=== PATIENT | female | born 1935 | race Caucasian/White ===

== ENCOUNTER 2018-11-11 11:01 | Observation (INO) | payer OTHER, MEDICARE ==
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
[2018-11-11] MEDS ORDERED: morphine CARPU-JECT 4 MG/1 ML DISP.SYRIN IVPUSH ONE (11:37)
[2018-11-11] MEDS ORDERED: CYCLOBENZAPRINE HCL 5 MG TABLET PO ONE (11:37)
[2018-11-11] MEDS ORDERED: LIDOCAINE 5% TOPICAL PATCH TP ONE (11:37)
[2018-11-11] MEDS ORDERED: morphine SULFATE 4 MG/ML VIAL ONE ×2 (11:48→14:22)
[2018-11-11] MEDS ORDERED: LIDOCAINE 5% TOPICAL PATCH ONE (11:48)
[2018-11-11] MEDS ORDERED: CYCLOBENZAPRINE HCL 10 MG TABLET (FP) ONE (11:48)
[2018-11-11 12:24] LABS: BASO % 0.6 % (0-2.0); EOS % 0.6 % (0-4.5); HEMATOCRIT 40.2 % (32.4-45.2); HEMOGLOBIN 13.6 GM/dl (10.7-15.3); LYMPH % 17.8 % (8-40); MCH 31.2 pg (25.7-33.7); MCHC 33.9 g/dl (32.0-36.0); MEAN CELL VOLUME 91.9 fl (80-96); MEAN PLT VOLUME 9.3 fl (7.5-11.1); MONO % 4.2 % (3.8-10.2); NEUT % 76.8 % (42.8-82.8); PLATELET COUNT 255 K/MM3 (134-434); RBC 4.37 M/mm3 (3.60-5.2); RDW 12.6 % (11.6-15.6); WHITE BLOOD COUNT 12.7 K/mm3 (4.0-10.8)
[2018-11-11 12:32] LABS: ALK PHOS 83 U/L (45-117); ANION GAP 8 MMOL/L (8-16); BILIRUBIN,TOTAL 0.6 mg/dl (0.2-1); BLOOD UREA NITROGEN 22 mg/dl (7-18); CALCIUM 9.1 mg/dl (8.5-10); CHLORIDE 102 mmol/L (98-107); CO2 23 mmol/L (21-32); CREATININE 0.8 mg/dl (0.55-1.3); GLUCOSE,RANDOM 136 mg/dl (74-106); POTASSIUM 4.2 mmol/L (3.5-5.1); SGOT/AST 34 U/L (15-37); SGPT/ALT 26 U/L (13-61); SODIUM 133 mmol/L (136-145); TOT PROT 7.4 g/dl (6.4-8.2)
[2018-11-11 13:31] LABS: ERYTHROCYTE SEDIMENTATION RATE 31 mm/hr (0-30)
[2018-11-11 14:08] LABS: EPITHELIAL CELLS 1+ /hpf
[2018-11-11] MEDS ORDERED: CEFTRIAXONE 1,000 MG in DEXTROSE 5%-WATER - 50 ML IVPB ONE (14:09)
[2018-11-11] MEDS ORDERED: morphine CARPU-JECT 2 MG/1 ML DISP.SYRIN IVPUSH ONE (14:19)
[2018-11-11] MEDS ORDERED: cefTRIAXone SODIUM 1 GM VIAL ONE (14:22)
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
[2018-11-11 16:38] VITALS: BMI 31.6
[2018-11-11] MEDS ORDERED: DEXTROSE 5%-NORMAL SALINE 1,000 ML IV SCH (20:00)
[2018-11-11] MEDS: ATENOLOL 50 MG TABLET (FP) PO SCH (21:04)
[2018-11-11] MEDS: TRIAMTERENE AND HCTZ - 37.5 MG/25 MG CAPSULE PO SCH (21:04)
[2018-11-11] MEDS ORDERED: ATORVASTATIN CA 20 MG TABLET (FP) PO SCH (22:00)
[2018-11-12 08:15] LABS: ACTIVATED PTT 26.1 SECONDS (25.2-36.5)
[2018-11-12 08:17] LABS: ALBUMIN 3.3 g/dl (3.4-5.0); ALK PHOS 66 U/L (45-117); ANION GAP 7 MMOL/L (8-16); BILIRUBIN,TOTAL 0.8 mg/dl (0.2-1); BLOOD UREA NITROGEN 17 mg/dl (7-18); CALCIUM 8.4 mg/dl (8.5-10); CHLORIDE 101 mmol/L (98-107); CO2 27 mmol/L (21-32); CREATININE 0.6 mg/dl (0.55-1.3); GLUCOSE,RANDOM 125 mg/dl (74-106); MAGNESIUM 1.6 mg/dL (1.8-2.4); POTASSIUM 3.9 mmol/L (3.5-5.1); SGOT/AST 26 U/L (15-37); SGPT/ALT 23 U/L (13-61); SODIUM 135 mmol/L (136-145); TOT PROT 6.2 g/dl (6.4-8.2)
[2018-11-12 08:21] LABS: INR 1.26 (0.82-1.09)
[2018-11-12] MEDS ORDERED: ACETAMINOPHEN 325 MG TABLET (FP) PO PRN (08:56)
[2018-11-12 08:58] LABS: EOS % 0.6 % (0-4.5); HEMOGLOBIN 12.2 GM/dl (10.7-15.3); LYMPH % 12.8 % (8-40); MCH 31.7 pg (25.7-33.7); MCHC 34.8 g/dl (32.0-36.0); MEAN PLT VOLUME 9.2 fl (7.5-11.1); MONO % 4.9 % (3.8-10.2); NEUT % 81.7 % (42.8-82.8); PLATELET COUNT 186 K/MM3 (134-434); RBC 3.85 M/mm3 (3.60-5.2); RDW 12.4 % (11.6-15.6); WHITE BLOOD COUNT 11.6 K/mm3 (4.0-10.8)
--- NOTE | 2018-11-12 09:21 | DS ---
Physical Exam: SUBJECTIVE: Patient seen and examined OBJECTIVE: Vital Signs Period Temp Pulse Resp BP Sys/Last Pulse Ox Last 24 Hr 97.7 F-98.6 F 63-75 17-20 130-166/47-88 90-99 PHYSICAL EXAM GENERAL: The patient is awake, alert, and fully oriented, in no acute distress. HEAD: Normal with no signs of trauma. EYES: PERRL, extraocular movements intact, sclera anicteric, conjunctiva clear. ENT: Ears normal, nares patent, oropharynx clear without exudates, moist mucous membranes. NECK: Trachea midline, full range of motion, supple. LUNGS: Breath sounds equal, clear to auscultation bilaterally, no wheezes, no crackles, no accessory muscle use. HEART: Regular rate and rhythm, S1, S2 without murmur, rub or gallop. ABDOMEN: Soft, nontender, nondistended, normoactive bowel sounds, no guarding, no rebound, no hepatosplenomegaly, no masses. EXTREMITIES: 2+ pulses, warm, well-perfused, no edema. NEUROLOGICAL: Cranial nerves II through XII grossly intact. Normal speech, gait not observed. PSYCH: Normal mood, normal affect. SKIN: Warm, dry, normal turgor, no rashes or lesions noted. LABS Laboratory Results - last 24 hr 11/11/18 11/11/18 11/11/18 11:01 12:00 12:05 WBC 12.7 H RBC 4.37 Hgb 13.6 Hct 40.2 MCV 91.9 MCH 31.2 MCHC 33.9 RDW 12.6 Plt Count 255 MPV 9.3 Absolute Neuts (auto) 9.7 Neutrophils % 76.8 Lymphocytes % 17.8 Monocytes % 4.2 Eosinophils % 0.6 Basophils % 0.6 ESR 31 H PT with INR INR PTT (Actin FS) Sodium 133 L Potassium 4.2 Chloride 102 Carbon Dioxide 23 Anion Gap 8 BUN 22 H Creatinine 0.8 Creat Clearance w eGFR 68.84 Random Glucose 136 H Calcium 9.1 Magnesium Total Bilirubin 0.6 AST 34 ALT 26 Alkaline Phosphatase 83 C-Reactive Protein 1.4 H Total Protein 7.4 Albumin 4.0 Urine Color Yellow Urine Appearance Clear Urine pH 5.5 Urine Protein 1+ H Urine Glucose (UA) Negative Urine Ketones Trace Urine Blood Negative Urine Nitrite Negative Urine Bilirubin Negative Urine Urobilinogen 0.2 Ur Leukocyte Esterase Trace Urine RBC 3-5 Urine WBC 5-10 Ur Transition Epith Cell 1+ Urine Bacteria Few 11/12/18 11/12/18 11/12/18 07:20 07:20 07:20 WBC 11.6 H RBC 3.85 Hgb 12.2 Hct 35.0 MCV 91.0 MCH 31.7 MCHC 34.8 RDW 12.4 Plt Count 186 MPV 9.2 Absolute Neuts (auto) 9.4 Neutrophils % 81.7 Lymphocytes % 12.8 Monocytes % 4.9 Eosinophils % 0.6 Basophils % 0.0 ESR PT with INR 14.0 H INR 1.26 H PTT (Actin FS) 26.1 Sodium 135 L Potassium 3.9 Chloride 101 Carbon Dioxide 27 Anion Gap 7 L BUN 17 Creatinine 0.6 Creat Clearance w eGFR 95.95 Random Glucose 125 H Calcium 8.4 L Magnesium 1.6 L Total Bilirubin 0.8 AST 26 ALT 23 Alkaline Phosphatase 66 D C-Reactive Protein Total Protein 6.2 L Albumin 3.3 L Urine Color Urine Appearance Urine pH Urine Protein Urine Glucose (UA) Urine Ketones Urine Blood Urine Nitrite Urine Bilirubin Urine Urobilinogen Ur Leukocyte Esterase Urine RBC Urine WBC Ur Transition Epith Cell Urine Bacteria HOSPITAL COURSE: Date of Admission:11/11/18 Date of Discharge: 11/12/18 Pyuria Minutes to complete discharge: 35 Discharge Summary Reason For Visit: BACK PAIN Current Active Problems Back pain (Acute) UTI (urinary tract infection) (Acute) Urinary incontinence (Acute) Condition: Guarded - Instructions - Home Medications Comprehensive Discharge Medication List: Ambulatory Orders Aspirin [ASA -] 81 mg PO DAILY 11/11/18 Atenolol [Tenormin -] 50 mg PO DAILY 11/11/18 Atorvastatin Ca [Lipitor] 20 mg PO HS 11/11/18 Triamterene/Hydrochlorothiazid [Triamterene-Hctz 37.5-25 mg Cp] 1 each PO DAILY 11/11/18 This patient is new to me today: No Emergency Visit: Yes ED Registration Date: 11/11/18 Care time: The patient presented to the Emergency Department on the above date and was hospitalized for further evaluation of their emergent condition. Critical Care patient: No - Discharge Referral Referred to [facility] Med P.C.: No
[2018-11-12] MEDS ORDERED: PT OWN MED DRAWER 7, Y5N ONE (09:24)
[2018-11-12] MEDS: ATENOLOL 50 MG TABLET (FP) PO SCH (09:35)
[2018-11-12] MEDS: TRIAMTERENE AND HCTZ - 37.5 MG/25 MG CAPSULE PO SCH (09:35)
[2018-11-12] MEDS ORDERED: MAGNESIUM SULF 50% (8.12 MEQ/2 ML-1 GM VIAL) IVPB ONE (09:38)
[2018-11-12] MEDS: HEPARIN NA (PORCINE) 5,000 UNITS/ML 1ML VIAL SQ SCH ×2 (09:39→14:42)
[2018-11-12] MEDS ORDERED: CEFTRIAXONE 1 G/50 ML PREMIX 50 ML IVPB SCH (10:00)
[2018-11-12] MEDS ORDERED: MAGNESIUM SULFATE IN WATER 2 GM/50 ML IVPB IVPB ONE (10:00)
[2018-11-12] MEDS: traMADol HCL 50 MG TABLET PO PRN ×2 (10:05→16:01)
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
[2018-11-12 14:11] VITALS: BP 148/58; PULSE 58; TEMP 97.9
--- NOTE | 2018-11-12 16:39 | EKG ---
Test Reason : Blood Pressure : / mmHG Vent. Rate : 066 BPM Atrial Rate : 066 BPM P-R Int : 160 ms QRS Dur : 084 ms QT Int : 428 ms P-R-T Axes : 090 014 024 degrees QTc Int : 448 ms SINUS RHYTHM WITH OCCASIONAL PREMATURE VENTRICULAR COMPLEXES SEPTAL INFARCT , AGE UNDETERMINED ABNORMAL ECG NO PREVIOUS ECGS AVAILABLE Confirmed by NEGRITA POZO, JUAN ([id number]) on 11/12/2018 4:38:34 PM Referred By: PENELOPE PARKS Confirmed By:JUAN REES MD
== END 2018-11-12 17:40 | disposition home or self-care (01) ==
LOC: FER 11:01 → FM/S 12:46
PROVIDERS: ADMIT Internal Medicine; ATTEND Nurse Practitioner Acute Care
PROC: 3E03329 Introduction of Other Anti-infective into Peripheral Vein, Percutaneous Approach (ICD-10-PCS; principal; 2018-11-11)
PROC: 3E033NZ Introduction of Analgesics, Hypnotics, Sedatives into Peripheral Vein, Percutaneous Approach (ICD-10-PCS; 2018-11-11)
PROC: 3E0337Z Introduction of Electrolytic and Water Balance Substance into Peripheral Vein, Percutaneous Approach (ICD-10-PCS; 2018-11-11)
PROC: 3E033GC Introduction of Other Therapeutic Substance into Peripheral Vein, Percutaneous Approach (ICD-10-PCS; 2018-11-11)
DX: N39.0 Urinary tract infection, site not specified (principal); R32 Unspecified urinary incontinence; M54.5 Low back pain; I10 Essential (primary) hypertension; E78.5 Hyperlipidemia, unspecified; I49.9 Cardiac arrhythmia, unspecified; Z79.82 Long term (current) use of aspirin
CPT/HCPCS: 36415; 72100-TC-FY; 72148-TC; 80053; 81003; 81015; 83735; 85025; 85610; 85651; 85730; 86140; 87086; 93005; 96365; 96367; 96375; 96376; 99285-25; G0378; J1644

== ENCOUNTER 2018-12-19 16:09 | Emergency (ER) | payer OTHER, MEDICARE ==
[2018-12-19 16:18] VITALS: BP 120/70; PULSE 61; TEMP 97.8; BMI 30.2
[2018-12-19] MEDS ORDERED: CYCLOBENZAPRINE HCL 10 MG TABLET (FP) PO ONE (17:46)
[2018-12-19] MEDS ORDERED: CYCLOBENZAPRINE HCL 10 MG TABLET (FP) ONE (18:06)
--- NOTE | 2018-12-19 18:11 | PDOC ---
History of Present Illness - General Chief Complaint: Back Pain Stated Complaint: LOWER BACK PAIN Time Seen by Provider: 12/19/18 16:45 History Source: Patient Exam Limitations: Clinical Condition - History of Present Illness Initial Comments: 12/19/18 18:04 Patient with h/o HTN and disc fracture a month ago diagnosed on MRI in [place] ED which shows T12 fracture and being followed-up by ortho spine which is being managed with Percocets present with complains of worsening pains to b/l lower back around waist line which has not been responding to Percocet. Patient report pain was well controlled until 3 days ago when it started having spasm of b/l lower back. Report increased pain when getting up from sitting or laying . Patient denies any new trauma or injury. Denies urinary frequency, burning with urination or dysuria. Denies urinary or fecal incontinence Timing/Duration: getting worse, other (1 month) Past History - Past Medical History Allergies/Adverse Reactions: Allergies Allergy/AdvReac Type Severity Reaction Status Date / Time ibuprofen [From Advil] Allergy Verified 12/19/18 17:21 naproxen [From Naprosyn] Allergy Verified 12/19/18 17:21 NSAIDS (Non-Steroidal Allergy Verified 12/19/18 17:21 Anti-Inflamma Home Medications: Ambulatory Orders Aspirin [ASA -] 81 mg PO DAILY 11/11/18 Atenolol [Tenormin -] 25 mg PO DAILY 11/11/18 Atorvastatin Ca [Lipitor] 20 mg PO HS 11/11/18 Triamterene/Hydrochlorothiazid [Triamterene-Hctz 37.5-25 mg Cp] 1 each PO DAILY 11/11/18 Alendronate Sodium [Binosto] 70 mg PO DAILY 12/19/18 Calcium Carb/Vitamin D3/Vit K1 [Calcium + D Soft Chewable Tab] 1 each PO DAILY 12/19/18 Lidocaine 5% Patch [Lidoderm -] 1 patch TP DAILY #30 patch 12/19/18 Methocarbamol [Robaxin -] 500 mg PO TID PRN #21 tablet 12/19/18 Cardiac Disorders: No (irregular heart beat) COPD: No Hypercholesterolemia: Yes Other medical history: fracture vertebrae - Immunization History Immunization Up to Date: No - Suicide/Smoking/Psychosocial Hx Smoking History: Never smoked Have you smoked in the past 12 months: No Information on smoking cessation initiated: No Hx Alcohol Use: No Drug/Substance Use Hx: No Hx Substance Use Treatment: No Review of Systems - Review of Systems Able to Perform ROS?: Yes Is the patient limited Dominican proficient: No Constitutional: No: Fever, Malaise, Weight Stable HEENTM: No: Symptoms Reported Respiratory: No: Symptoms reported Cardiac (ROS): No: Symptoms Reported ABD/GI: No: Symptoms Reported, Nausea, Vomiting : No: Symptoms Reported, Burning, Dysuria, Discharge, Frequency, Incontinence , Urgency Musculoskeletal: Yes: Symptoms Reported, See HPI, Back Pain (b/l lower back), Muscle Pain (b/l lower back). No: Muscle Weakness Neurological: No: Symptoms reported, Numbness, Paresthesia, Tingling All Other Systems: Reviewed and Negative *Physical Exam - Vital Signs Last Vital Signs Temp Pulse Resp BP Pulse Ox 97.8 F 61 16 120/70 97 12/19/18 16:15 12/19/18 16:15 12/19/18 16:15 12/19/18 16:15 12/19/18 16:15 - Physical Exam Comments: 12/19/18 18:14 GENERAL: Well developed, well nourished. Awake and alert. No acute distress. CARDIOVASCULAR: Regular rate and rhythm. No murmurs, rubs, or gallops. PULMONARY: No evidence of respiratory distress. Lungs clear to auscultation bilaterally. No wheezing, rales or rhonchi. ABDOMINAL: Soft. Non-tender. Non-distended. No rebound or guarding. No organomegaly. Normoactive bowel sounds MUSCULOSKELETAL : mild tenderness over posterior paravertebral muscle of lumbar spine of L4-S1 on bilateral sides. No bony deformities . Negative straight leg test. SKIN: Warm and dry. Normal capillary refill. No rashes. NEUROLOGICAL: Alert, awake, appropriate. No motor deficits in the lower extremities. Gait is normal without ataxia. PSYCHIATRIC: Cooperative. Good eye contact. Appropriate mood and affect. General Appearance: Yes: Nourished, Appropriately Dressed. No: Apparent Distress Medical Decision Making - Medical Decision Making 12/19/18 18:11 Patient with h/o HTN and disc fracture a month ago diagnosed on MRI in [place] ED which shows T12 fracture and being followed-up by ortho spine which is being managed with Percocets present with complains of worsening pains to b/l lower back around waist line which has not been responding to Percocet. Patient report pain was well controlled until 3 days ago when it started having spasm of b/l lower back. Report increased pain when getting up from sitting or laying . Patient denies any new trauma or injury. Denies urinary frequency, burning with urination or dysuria. Denies urinary or fecal incontinence Exam significant for mild TTP of b/l paravertebral muscle of lower lumbar spine. Patient symptoms likely muscle spasm. No needed for rpt imaging today given recent MRI and x-ray of lumbasacral and no new injury. Flexeril 10mg PO given for spasm. Reassess after 30mins 12/19/18 19:04 Patient report feeling better with flexiril. Patient stable for discharge to continue percocet prn for pain and robaxin with ortho follow-up *DC/Admit/Observation/Transfer Diagnosis at time of Disposition: Back pain Qualifiers: Back pain location: low back pain Chronicity: acute Back pain laterality: bilateral Sciatica presence: without sciatica Qualified Code(s): M54.5 - Low back pain - Discharge Dispostion Disposition: HOME Condition at time of disposition: Stable Decision to Admit order: No - Prescriptions Prescriptions: Lidocaine 5% Patch [Lidoderm -] 1 patch TP DAILY #30 patch Methocarbamol [Robaxin -] 500 mg PO TID PRN #21 tablet PRN Reason: Back Pain - Referrals Referrals: Bhupendra Rodriguez MD [Primary Care Provider] - - Patient Instructions Printed Discharge Instructions: DI for Low Back Pain Additional Instructions: Take prescribed medications as needed for pain. Apply heat to back as needed for pain. Follow-up with your orthopedics spine doctor - Post Discharge Activity
== END 2018-12-19 19:14 | disposition home or self-care (01) ==
LOC: JER 16:09 → JERFT 16:09 → JER 19:14
DX: M54.5 Low back pain (principal); Z87.81 Personal history of (healed) traumatic fracture; E78.00 Pure hypercholesterolemia, unspecified; I49.8 Other specified cardiac arrhythmias
CPT/HCPCS: 99283-25

== ENCOUNTER 2020-02-25 11:02 | Inpatient (IN) | payer OTHER, MEDICARE ==
--- NOTE | 2020-02-25 11:39 | PDOC ---
History of Present Illness - General Chief Complaint: Lightheaded Stated Complaint: WEAKNESS Time Seen by Provider: 02/25/20 11:23 History Source: Patient Exam Limitations: No Limitations - History of Present Illness Initial Comments: Aurea is an 84 yo F w a hx of HTN and back surgery who presents to the [facility] er for generalized weakness for the past 4 days. She feels like she is wobbling when she walks and is concerned she is going to pass out and fall down. She has not fallen down but feels generalized weakness. She took atenolol for HTN today but no other meds. She usually takes losartan for BP but 10 days ago her pharmacy was out of losartan so her PCP prescribed her valsartan. Patient states ever since she started taking valsartan her weakness and generalized fatigue began. Denies chest pain, SOB, difficulty breathing, nausea, vomiting, room spinning, headache, neck pain, back pain, dysuria, frequency, urgency, fevers, chills or infections. PCP: Dr. Rodriguez Foreman Shipping Department: Khalif Herrmann Hx: Denies smoking, drinking or other substance abuse Allergies: NKA, NKDA PSH: Back surgery Past History - Medical History Allergies/Adverse Reactions: Allergies Allergy/AdvReac Type Severity Reaction Status Date / Time ibuprofen [From Advil] Allergy Verified 02/25/20 11:04 naproxen [From Naprosyn] Allergy Verified 02/25/20 11:04 NSAIDS (Non-Steroidal Allergy Verified 02/25/20 11:04 Anti-Inflamma Home Medications: Ambulatory Orders Aspirin [ASA -] 81 mg PO DAILY 11/11/18 Atenolol [Tenormin -] 50 mg PO DAILY 11/11/18 Atorvastatin Ca [Lipitor] 20 mg PO HS 11/11/18 Triamterene/Hydrochlorothiazid [Triamterene-Hctz 37.5-25 mg Cp] 37.5 each PO DAILY 11/11/18 Alendronate Sodium [Binosto] 70 mg PO DAILY 12/19/18 Calcium Carb/Vitamin D3/Vit K1 [Calcium + D Soft Chewable Tab] 1 each PO DAILY 12/19/18 Lidocaine 5% Patch [Lidoderm -] 1 patch TP DAILY #30 patch 12/19/18 Methocarbamol [Robaxin -] 500 mg PO TID #21 tablet 12/19/18 Oxycodone HCl/Acetaminophen [Percocet 5-325 mg Tablet] 1 tab PO TID 12/25/18 Anemia: No Asthma: No Cancer: No Cardiac Disorders: No (irregular heart beat) CVA: No COPD: No CHF: No Dementia: No Diabetes: No GI Disorders: No Disorders: No HTN: Yes Hypercholesterolemia: Yes Liver Disease: No Seizures: No Thyroid Disease: No - Surgical History Abdominal Surgery: No Appendectomy: No Cardiac Surgery: No Cholecystectomy: No Lung Surgery: No Neurologic Surgery: No Orthopedic Surgery: No - Immunization History Immunization Up to Date: No - Psycho-Social/Smoking History Smoking History: Never smoked Have you smoked in the past 12 months: No Number of Cigarettes Smoked Daily: 1 - Substance Abuse Hx (Audit-C & DAST Scrn) How often the patient has a drink containing alcohol: Never Score: In Men: 4 or > Positive; In Women: 3 or > Positive: 0 Screen Result (Pos requires Nsg. Audit-10AR): Negative In the last yr the pt used illegal drug/Rx for NonMed reason: No Score: Yes response is considered Positive: 0 Screen Result (Positive result requires Nsg. DAST-10): Negative Review of Systems - Review of Systems Able to Perform ROS?: Yes Comments:: CONSTITUTIONAL: Present: Fatigue Absent: fever, no chills EYES: Absent: visual changes ENT: Absent: ear pain, no sore throat CARDIOVASCULAR: Absent: chest pain, no palpitations RESPIRATORY: Absent: cough, no SOB GI: Absent: abdominal pain, no nausea, no vomiting, no constipation, no diarrhea GENITOURINARY: Absent: dysuria, no frequency, no hematuria MUSKULOSKELETAL: Absent: back pain, no arthralgia, no myalgia SKIN: Absent: rash NEURO: Absent: headache *Physical Exam - Vital Signs Last Vital Signs Temp Pulse Resp BP Pulse Ox 98.0 F 56 L 20 140/54 L 96 02/25/20 11:04 02/25/20 11:04 02/25/20 11:04 02/25/20 11:04 02/25/20 11:04 - Physical Exam GENERAL: Well-appearing, well-nourished. No apparent distress. HEENT: Normocephalic, atraumatic. PERRL, EOM intact. CARDIOVASCULAR: Normal S1, S2. Regular rate and rhythm. PULMONARY: No evidence of respiratory distress. Lungs clear to auscultation bilaterally. No wheezing, rales or rhonchi. ABDOMEN: Soft, non-distended, non-tender. EXTREMITIES: Normal ROM in all four extremities. No gross deformities. SKIN: Warm, dry. No rash NEUROLOGICAL: Alert, awake, appropriate. Cranial nerves 2-12 intact. No deficits to light touch in face, upper extremities and lower extremities. No motor deficits in the in face, upper extremities and lower extremities. Normal speech. T ED Treatment Course - LABORATORY CBC & Chemistry Diagram: 02/25/20 11:39 02/25/20 11:39 Medical Decision Making - Medical Decision Making Aurea is an 84 yo F w a hx of HTN and back surgery who presents to the [facility] er for generalized weakness for the past 4 days. She feels like she is wobbling when she walks and is concerned she is going to pass out and fall down. She has not fallen down but feels generalized weakness. She took atenolol for HTN today but no other meds. She usually takes losartan for BP but 10 days ago her pharmacy was out of losartan so her PCP prescribed her valsartan. Patient states ever since she started taking valsartan her weakness and generalized fatigue began. Denies chest pain, SOB, difficulty breathing, nausea, vomiting, room spinning, headache, neck pain, back pain, dysuria, frequency, urgency, fevers, chills or infections. Vital Signs Temp Pulse Resp BP Pulse Ox 98.0 F 56 L 20 140/54 L 96 02/25/20 11:04 02/25/20 11:04 02/25/20 11:04 02/25/20 11:04 02/25/20 11:04 DDx IBNLT: Arrythmia, ACS, electrolyte/metabolic disturbance, anemia, UTI, ICH, PNA Plan: Labs, urine, CXR, EKG, CT, likely admit tele obs EKG: Sinus bradycardia rate of 50, narrow complexes, qrs 82, ventricular rate of 71 with trigeminy PVC's, normal axis, LVH, no ST elevations or depressions, Septal Q waves, QTc 441 Labs: Elevated BUN, trop negative Urine: Suggestive of UTI - Treating with ceftriaxone CXR: No evidence of PNA, questionable nodular densities. Handing copy of xr read to patient and instructing her to discuss findings with her PCP CT: No acute pathology, age related volume loss MDM: The patient is bradycardic, possibly from taking too much of her atenolol. I suspect her weakness and fatigue is related to her bradycardia. Will admit the patient to Tele obs and get a cardiac consult. Cards Consult: Dr. Cuadra Dispo: Tele obs - Microblogged for admission - Accepted to Dr. Munoz's service Discharge - Discharge Information Problems reviewed: Yes Clinical Impression/Diagnosis: Weakness, Bradycardia Fatigue Qualifiers: Fatigue type: unspecified Qualified Code(s): R53.83 - Other fatigue UTI (urinary tract infection) Qualifiers: Urinary tract infection type: site unspecified Hematuria presence: without hematuria Qualified Code(s): N39.0 - Urinary tract infection, site not specified Condition: Stable - Admission Yes - Follow up/Referral Referrals: Bhupendra Rodriguez MD [Primary Care Provider] - - Patient Discharge Instructions Additional Instructions: Nodular densities seen on CXR - Post Discharge Activity
[2020-02-25 12:01] LABS: BASO % 0.8 % (0-2.0); EOS % 1.2 % (0-4.5); HEMATOCRIT 38.5 % (32.4-45.2); HEMOGLOBIN 13.1 GM/dL (10.7-15.3); LYMPH % 16.8 % (8-40); MCH 30.5 pg (25.7-33.7); MCHC 33.9 g/dl (32.0-36.0); MEAN CELL VOLUME 89.8 fl (80-96); MEAN PLT VOLUME 8.7 fl (7.5-11.1); MONO % 6.1 % (3.8-10.2); NEUT % 75.1 % (42.8-82.8); PLATELET COUNT 227 K/MM3 (134-434); RBC 4.28 M/mm3 (3.60-5.2); RDW 12.8 % (11.6-15.6); WHITE BLOOD COUNT 9.8 K/mm3 (4.0-10.0)
[2020-02-25 12:25] LABS: ALBUMIN 3.5 g/dl (3.4-5.0); BILIRUBIN,TOTAL 0.4 mg/dL (0.2-1); BLOOD UREA NITROGEN 18.6 mg/dL (7-18); CALCIUM 9.3 mg/dL (8.5-10.1); CREATININE 0.9 mg/dL (0.55-1.3); MAGNESIUM 2.1 mg/dL (1.8-2.4); POTASSIUM 3.9 mmol/L (3.5-5.1); TOT PROT 6.7 g/dl (6.4-8.2)
[2020-02-25] MEDS ORDERED: SODIUM CHLORIDE 0.9% 500 ML INFUS.BAG IV ONE (12:57)
[2020-02-25 13:22] LABS: EPI CELLS 18 /uL (0-25.1); HYALINE CASTS 2 /uL (0-3.1); URINE APPEARANCE CLEAR; URINE BACTERIA 51 /uL (0-1359); URINE BILIRUBIN NEGATIVE (NEGATIVE); URINE COLOR YELLOW; URINE GLUCOSE (UA) NEGATIVE (NEGATIVE); URINE KETONE NEGATIVE (NEGATIVE); URINE LEUK ESTERASE 2+ (NEGATIVE); URINE NITRITE NEGATIVE (NEGATIVE); URINE PROTEIN NEGATIVE (NEGATIVE); URINE RBC 6 /uL (0-23.9); URINE UROBILINOGEN 0.2 mg/dL (0.2-1.0); URINE WBC 127 /uL (0-25.8)
[2020-02-25] MEDS ORDERED: CEFTRIAXONE 1,000 MG in DEXTROSE 5%-WATER - 50 ML IVPB ONE (13:32)
--- NOTE | 2020-02-25 13:34 | PN ---
Teaching Attending Note Name of Resident: Martine Cabral ATTENDING PHYSICIAN STATEMENT I saw and evaluated the patient. I reviewed the resident's note and discussed the case with the resident. I agree with the resident's findings and plan as documented. SUBJECTIVE: 84 yo female with known history of diverticulitis, UTI, hypertension, ascending aneurysm who presents to the ED with complaints of profound weakness of about 3- 4 days' duration. She feels unsteady on her feet when she walks. Apparently she has been having diarrhea in the last 1-2 weeks, and saw her doctor who prescribed her an antibiotic for presumed diverticulitis flare. Despite antibiotics she continued to feel unwell. Her son bought Imodium to which she responded well. Patient denied chest pains, nausea, vomiting. She admits to poor appetite OBJECTIVE: Gen: appears appropriate for stated age and not in acute distress HEENT: lip and tongue mucosa appear dry; pupils are equal Chest; diminished breath sounds CVS: RRR, no murmurs abd: soft, nontender, nondistended, + hypoactive bowel sounds ext; no edema, feet are warm and dry manager drive; no motor nor sensory deficit ASSESSMENT AND PLAN: 1. Weakness in setting of diarrhea (now resolved) - Ddx: cardiac etiologies (arrhythmia, ACS), dehydration, electrolyte abnormality, infection - suspect dehydration - cont cardiac monitoring - stool culture once sample available - check orthostatics - IVF - check electrolytes - covid-19 screening 2. mild Bradycardia - Atenolol which - monitor Heart rate - checking electrolytes as above - awaiting EKG 3. HTN 4. Incidental finding of possible nodular opacities on CXR. She also has an ascending aneurysm - CT scan of the chest to better visualize 5. DVT prophylaxis - Lovenox
[2020-02-25] MEDS ORDERED: CEFTRIAXONE 1 GM/50 ML BAG ONE (14:13)
--- NOTE | 2020-02-25 14:29 | PDOC ---
Documentation entered by Isela Mark SCRIBE, acting as scribe for Miko Chester MD. Miko Chester MD: This documentation has been prepared by the Deedee fisher Nirvannie, SCRIBE, under my direction and personally reviewed by me in its entirety. I confirm that the documentation accurately reflects all work, treatment, procedures, and medical decision making performed by me. Attending Attestation - Resident Resident Name: Luke Rudolph - ED Attending Attestation I have performed the following: I have examined & evaluated the patient, The case was reviewed & discussed with the resident, I agree w/resident's findings & plan, Exceptions are as noted - HPI HPI: 02/25/20 12:21 CC: Weakness The patient is an 84 year old female with a significant past medical history of hypertension and back surgery who presents to the ED with 4 days of generalized weakness. Patient describes her weakness as a wobbly sensation making her feel as if she will fall (no recent falls). Patients HTN medication was recently changed from Losartan to Valsartan 10 days ago secondary to pharmacy running out which she constitutes to the onset of her symptoms. Allergies: Ibuprofen, Naproxen, NSAIDS Primary Care Physician: Dr. Linares - Physicial Exam PE: 02/25/20 14:29 Vitals: Triage Vital signs reviewed General Appearance: No acute distress, well nourished well developed, Head: Atraumatic, Eyes: Pupils equal reactive round, extraocular movement intact Cardiac: Regular rate and rhythym, no murmurs, no rubs, no gallops, Lungs: Clear to auscultation bilateral, good air movement bilaterally, Abdomen: Soft, non distended, normal bowel sounds, non tender to palpation Extremities: Full range of motion to all extremities, no cyanosis, clubbing, or edema Skin: Warm and dry, no rashes or lesions, no rash, no petechiae Neuro: AOX3; cranial Nerves 2-12 grossly intact, strength intact to all extremities, sensation intact to all extremities, slighly unsteady gait Psych: Normal mood, normal affect - Medical Decision Making 02/25/20 14:41 EKG demonstrates sinus bradycardia 48 bpm with PVCs 71 with trigeminy pattern Lightheadedness may be secondary to underlying urinary tract infection treated with ceftriaxone versus medication changes Recommend holding beta-ovidio overnight hydration antibiotics and further management. Will observe on telemetry overnight Discharge - Discharge Information Problems reviewed: Yes Clinical Impression/Diagnosis: Weakness, Bradycardia Fatigue Qualifiers: Fatigue type: unspecified Qualified Code(s): R53.83 - Other fatigue UTI (urinary tract infection) Qualifiers: Urinary tract infection type: site unspecified Hematuria presence: without hematuria Qualified Code(s): N39.0 - Urinary tract infection, site not specified Condition: Stable - Follow up/Referral - Patient Discharge Instructions - Post Discharge Activity
--- NOTE | 2020-02-25 15:09 | HP ---
CHIEF COMPLAINT: Diarrhea PCP: Dr. Rodriguez Outside [employer] Field Engineer: Khalif HISTORY OF PRESENT ILLNESS: 84 y/o F, pmh of HTN, HLD, back surgery, diverticulitis, ascending aortic aneurysm, pulmonary nodules presents to the ED with 2 weeks of diarrhea, weakness and dizziness. Pt reports that her symptoms began spontaneously and has since improved. She reports that she has been having multiple bouts of nbnb watery diarrhea which has improved since starting abx that her pcp recommended, however, in the setting of negative blood work, pcp discontinued her abx and treated her conservatively with imodium. She also attributes her symptoms to the time when she started valsartan instead of losartan as the pharmacy ran out of supply. She has history of diverticulitis that was treated several yrs ago. Pt has been seen by her linen folder 3 weeks ago, with an ECHO showing no abnormalities and stable ascending aortic aneurysm. She has also been told by her PCP that her lung nodules have beens table. Denies f/c/n/v/d/sob/chest pain/ dysuria/hematuria/hemtochezia/melena, puria ER course was notable for: (1)Head CT normal (2)CXR lung nodularity seen (3)EKG: Bradycardic, no NALINI, TWI, poor progression. PVCs Recent Travel: denies PAST MEDICAL HISTORY: HTN, HLD, Back surgery, diverticulitis, aortic ascending aneurysm, pulmonary nodules PAST SURGICAL HISTORY: HTN, HLD, back surgery Social History: Smoking: hx of smoking, quit several years ago Alcohol: denies Drugs: denies Allergies ibuprofen [From Advil] Allergy (Verified 02/25/20 11:04) naproxen [From Naprosyn] Allergy (Verified 02/25/20 11:04) NSAIDS (Non-Steroidal Anti-Inflamma Allergy (Verified 02/25/20 11:04) HOME MEDICATIONS: Home Medications Medication Instructions Recorded Aspirin [ASA -] 81 mg PO DAILY 11/11/18 Atenolol [Tenormin -] 50 mg PO DAILY 11/11/18 Atorvastatin Ca [Lipitor] 20 mg PO HS 11/11/18 Triamterene/Hydrochlorothiazid 37.5 each PO DAILY 11/11/18 [Triamterene-Hctz 37.5-25 mg Cp] Alendronate Sodium [Binosto] 70 mg PO WEEKLY 12/19/18 Calcium Carb/Vitamin D3/Vit K1 1 each PO DAILY 12/19/18 [Calcium + D Soft Chewable Tab] Celecoxib [Celebrex] 200 mg PO DAILY 02/25/20 Umeclidinium [place] [Incruse 1 pump IH DAILY 02/25/20 Ellipta] Valsartan 80 mg PO DAILY 02/25/20 PHYSICAL EXAMINATION Vital Signs - 24 hr 02/25/20 11:04 Temperature 98.0 F Pulse Rate 56 L Respiratory 20 Rate Blood Pressure 140/54 L O2 Sat by Pulse 96 Oximetry (%) GENERAL: Awake, alert, and fully oriented, in no acute distress. EYES: Pupils equal, round and reactive to light, extraocular movements intact, sclera anicteric EARS, NOSE, THROAT: Dry mucous membranes. NECK: Normal range of motion, supple without lymphadenopathy, or masses. JVD distended/ pulsating LUNGS: Breath sounds equal, clear to auscultation bilaterally. No wheezes, and no crackles. HEART: Irregular rate and rhythm, normal S1 and S2 without murmur, rub or gallop. ABDOMEN: Soft, nontender, not distended, normoactive bowel sounds, no guarding, no rebound, no masses. MUSCULOSKELETAL: Normal range of motion at all joints. LOWER EXTREMITIES: 2+ pulses, warm, well-perfused. No calf tenderness. no peripheral edema. NEUROLOGICAL: Cranial nerves II-XII intact. Normal speech. Normal gait. PSYCHIATRIC: Cooperative. Good eye contact. Appropriate mood and affect. SKIN: Warm, dry, normal turgor 02/25/20 02/25/20 02/25/20 11:39 11:39 11:39 WBC 9.8 RBC 4.28 Hgb 13.1 Hct 38.5 MCV 89.8 MCH 30.5 MCHC 33.9 RDW 12.8 Plt Count 227 MPV 8.7 Absolute Neuts (auto) 7.3 Neutrophils % 75.1 Lymphocytes % 16.8 Monocytes % 6.1 Eosinophils % 1.2 Basophils % 0.8 Nucleated RBC % 0 PTT (Actin FS) 29.7 Sodium 138 Potassium 3.9 Chloride 105 Carbon Dioxide 25 Anion Gap 7 L BUN 18.6 H Creatinine 0.9 Est GFR (CKD-EPI)AfAm 69.01 Est GFR (CKD-EPI)NonAf 59.55 Random Glucose 89 Calcium 9.3 Magnesium 2.1 Total Bilirubin 0.4 AST 16 ALT 17 Alkaline Phosphatase 68 Troponin I Total Protein 6.7 Albumin 3.5 Urine Color Urine Appearance Urine pH Ur Specific [place] Urine Protein Urine Glucose (UA) Urine Ketones Urine Blood Urine Nitrite Urine Bilirubin Urine Urobilinogen Ur Leukocyte Esterase Urine WBC (Auto) Urine RBC (Auto) Urine Casts (Auto) U Epithel Cells (Auto) Urine Bacteria (Auto) 02/25/20 02/25/20 11:39 13:00 WBC RBC Hgb Hct MCV MCH MCHC RDW Plt Count MPV Absolute Neuts (auto) Neutrophils % Lymphocytes % Monocytes % Eosinophils % Basophils % Nucleated RBC % PTT (Actin FS) Sodium Potassium Chloride Carbon Dioxide Anion Gap BUN Creatinine Est GFR (CKD-EPI)AfAm Est GFR (CKD-EPI)NonAf Random Glucose Calcium Magnesium Total Bilirubin AST ALT Alkaline Phosphatase Troponin I < 0.02 Total Protein Albumin Urine Color Yellow Urine Appearance Clear Urine pH 5.0 Ur Specific [place] 1.013 Urine Protein Negative Urine Glucose (UA) Negative Urine Ketones Negative Urine Blood Negative Urine Nitrite Negative Urine Bilirubin Negative Urine Urobilinogen 0.2 Ur Leukocyte Esterase 2+ H Urine WBC (Auto) 127 Urine RBC (Auto) 6 Urine Casts (Auto) 2 U Epithel Cells (Auto) 18 Urine Bacteria (Auto) 51 ASSESSMENT/PLAN: Weakness 2/2 volume depletion/diarrhea Bradycardia Pulmonary nodules Ascending aortic aneurysm Asymptomatic UTI Plan: Hydration IVF at 85, symptoms improved Imodium for diarrhea as needed- symptoms improved Stool Cx C-diff ORthostatics COVID testing Precaution/isolation Hold atenolol in setting of bradycardia hold BP meds in setting of volume depletion until hydration complete Cardio consulted r/p Trops Tele obs CT chest Visit type - Medication Review Med list reviewed for High Risk Meds patients 65 and older: Yes - Emergency Visit Emergency Visit: Yes ED Registration Date: 02/25/20 Care time: The patient presented to the Emergency Department on the above date and was hospitalized for further evaluation of their emergent condition. - New Patient This patient is new to me today: No - Critical Care Critical Care patient: No ATTENDING PHYSICIAN STATEMENT I saw and evaluated the patient. I reviewed the resident's note and discussed the case with the resident. I agree with the resident's findings and plan as documented. SUBJECTIVE: OBJECTIVE: ASSESSMENT AND PLAN:
[2020-02-25] MEDS ORDERED: PATIENT'S OWN MEDICATION (NON-FORMULARY) (Alendronate Sodium [Binosto] 70 MG) PO SCH (15:15)
--- NOTE | 2020-02-25 15:17 | HP ---
CHIEF COMPLAINT: weakness PCP: DR. Clark HISTORY OF PRESENT ILLNESS: Patient is 84 yo female with PMH of HTN, HLD, diverticulitis and PVCs. She presented to the ED with complaints of weakness and trembling. She has had intermittent diarrhea for about 3 weeks. She went to her PCP 3 weeks ago with abdominal pain and she thought she was suffering from diverticulitis. She was given an antibiotic (doesn't remember which one). She took this antibiotic for about 5 days and then her PCP called her and said to stop taking it because her labs did not indicate diverticulitis. Around the same time, her tumbling barrel painter switched her from losartan to valsartan, she was worried the change was making her feel weak. Since she was still feeling, her PCP told her to stop taking all of her medications except her atenolol. She has tried imodium for the diarrhea with some relief. Son and patient both report patient has had decreased PO intake. Patient reports feeling better since receiving fluids in the ED. ER course was notable for: (1)CXR (2)Head CT (3)UA -given 1 g rocephin (4) 1 L NS bolus Recent Travel: denies PAST MEDICAL HISTORY: HTN HLD Hx of lung nodules - stable Hx of stable ascending aortic aneurysm PAST SURGICAL HISTORY: denies Social History: Smoking: smoked occasionally but hasn't for over 30 years Alcohol: denies Drugs: denies Family Hx: heart disease on maternal (mother had LA at 50) and paternal side Diabetes sister has same lung nodules Allergies ibuprofen [From Advil] Allergy (Verified 02/25/20 11:04) naproxen [From Naprosyn] Allergy (Verified 02/25/20 11:04) NSAIDS (Non-Steroidal Anti-Inflamma Allergy (Verified 02/25/20 11:04) HOME MEDICATIONS: Home Medications Medication Instructions Recorded Aspirin [ASA -] 81 mg PO DAILY 11/11/18 Atenolol [Tenormin -] 50 mg PO DAILY 11/11/18 Atorvastatin Ca [Lipitor] 20 mg PO HS 11/11/18 Triamterene/Hydrochlorothiazid 37.5 each PO DAILY 11/11/18 [Triamterene-Hctz 37.5-25 mg Cp] Alendronate Sodium [Binosto] 70 mg PO WEEKLY 12/19/18 Calcium Carb/Vitamin D3/Vit K1 1 each PO DAILY 12/19/18 [Calcium + D Soft Chewable Tab] Celecoxib [Celebrex] 200 mg PO DAILY 02/25/20 Umeclidinium [place] [Incruse 1 pump IH DAILY 02/25/20 Ellipta] Valsartan 80 mg PO DAILY 02/25/20 REVIEW OF SYSTEMS CONSTITUTIONAL: generalized weakness, malaise, loss of appetite Absent: fever, chills, diaphoresis, weight change HEENT: Absent: rhinorrhea, nasal congestion, throat pain, throat swelling, difficulty swallowing, mouth swelling, ear pain, eye pain, visual changes CARDIOVASCULAR: Absent: chest pain, syncope, palpitations, irregular heart rate, lightheadedness, peripheral edema RESPIRATORY: Absent: cough, shortness of breath, dyspnea with exertion, orthopnea, wheezing, stridor, hemoptysis GASTROINTESTINAL: Diarrhea Absent: abdominal pain, abdominal distension, nausea, vomiting, constipation, melena, hematochezia GENITOURINARY: Absent: dysuria, frequency, urgency, hesitancy, hematuria, flank pain, genital pain MUSCULOSKELETAL: trembling Absent: myalgia, arthralgia, joint swelling, back pain, neck pain SKIN: Absent: rash, itching, pallor HEMATOLOGIC/IMMUNOLOGIC: Absent: easy bleeding, easy bruising, lymphadenopathy, frequent infections ENDOCRINE: Absent: unexplained weight gain, unexplained weight loss, heat intolerance, cold intolerance NEUROLOGIC: Absent: headache, focal weakness or paresthesias, dizziness, unsteady gait, seizure, mental status changes, bladder or bowel incontinence PSYCHIATRIC: Absent: anxiety, depression, suicidal or homicidal ideation, hallucinations. PHYSICAL EXAMINATION Vital Signs - 24 hr 02/25/20 11:04 Temperature 98.0 F Pulse Rate 56 L Respiratory 20 Rate Blood Pressure 140/54 L O2 Sat by Pulse 96 Oximetry (%) GENERAL: Awake, alert, and fully oriented, in no acute distress. HEAD: Normal with no signs of trauma. EYES: Pupils equal, round and reactive to light, extraocular movements intact, sclera anicteric, conjunctiva clear. EARS: Dry mucous membranes NECK: Normal range of motion, supple without lymphadenopathy, JVD LUNGS: Breath sounds equal, CTA BL. HEART: Bradycardic with PVCs ABDOMEN: Soft, nontender, not distended, normoactive bowel sounds, no guarding, no rebound, no masses. No hepatomegaly or splenomegaly. MUSCULOSKELETAL: No tenderness to palpation. No CVA tenderness. UPPER EXTREMITIES: 2+ pulses, warm, well-perfused. No cyanosis. No clubbing. No peripheral edema. LOWER EXTREMITIES: 2+ pulses, warm, well-perfused. No calf tenderness. No peripheral edema. NEUROLOGICAL: Cranial nerves II-XII intact. Normal speech. Normal gait. PSYCHIATRIC: Cooperative. Good eye contact. Appropriate mood and affect. SKIN: Warm, dry, no lesions Laboratory Results - last 24 hr 02/25/20 02/25/20 02/25/20 11:39 11:39 11:39 WBC 9.8 RBC 4.28 Hgb 13.1 Hct 38.5 MCV 89.8 MCH 30.5 MCHC 33.9 RDW 12.8 Plt Count 227 MPV 8.7 Absolute Neuts (auto) 7.3 Neutrophils % 75.1 Lymphocytes % 16.8 Monocytes % 6.1 Eosinophils % 1.2 Basophils % 0.8 Nucleated RBC % 0 PTT (Actin FS) 29.7 Sodium 138 Potassium 3.9 Chloride 105 Carbon Dioxide 25 Anion Gap 7 L BUN 18.6 H Creatinine 0.9 Est GFR (CKD-EPI)AfAm 69.01 Est GFR (CKD-EPI)NonAf 59.55 Random Glucose 89 Calcium 9.3 Magnesium 2.1 Total Bilirubin 0.4 AST 16 ALT 17 Alkaline Phosphatase 68 Troponin I Total Protein 6.7 Albumin 3.5 Urine Color Urine Appearance Urine pH Ur Specific [place] Urine Protein Urine Glucose (UA) Urine Ketones Urine Blood Urine Nitrite Urine Bilirubin Urine Urobilinogen Ur Leukocyte Esterase Urine WBC (Auto) Urine RBC (Auto) Urine Casts (Auto) U Epithel Cells (Auto) Urine Bacteria (Auto) 02/25/20 02/25/20 11:39 13:00 WBC RBC Hgb Hct MCV MCH MCHC RDW Plt Count MPV Absolute Neuts (auto) Neutrophils % Lymphocytes % Monocytes % Eosinophils % Basophils % Nucleated RBC % PTT (Actin FS) Sodium Potassium Chloride Carbon Dioxide Anion Gap BUN Creatinine Est GFR (CKD-EPI)AfAm Est GFR (CKD-EPI)NonAf Random Glucose Calcium Magnesium Total Bilirubin AST ALT Alkaline Phosphatase Troponin I < 0.02 Total Protein Albumin Urine Color Yellow Urine Appearance Clear Urine pH 5.0 Ur Specific [place] 1.013 Urine Protein Negative Urine Glucose (UA) Negative Urine Ketones Negative Urine Blood Negative Urine Nitrite Negative Urine Bilirubin Negative Urine Urobilinogen 0.2 Ur Leukocyte Esterase 2+ H Urine WBC (Auto) 127 Urine RBC (Auto) 6 Urine Casts (Auto) 2 U Epithel Cells (Auto) 18 Urine Bacteria (Auto) 51 ASSESSMENT/PLAN: Patient is 84 yo F with hx of HTN, HLD, diverticulitis, & PVCs, presented to the ED with 3 weeks of weakness, intermittent diarrhea and bradycardia. Admitted to tele observation for workup of weakness. Weakness 2/2 volume depletion 2/2 Diarrhea - diarrhea and decreased PO intake - IVF - Repeat BMP, repeat electrolytes as needed - orthostatics - EKG showed bradycardia and PVCs consistent with her previous EKG on file - monitor on tele for arrhythmias Diarrhea - r/o cdiff, cultures ordered - stool cultures for possible bacterial causes - monitor electrolyses Bradycardia - most likely chronic - holding atenolol - Cardiology consulted - monitor on tele UTI? - patient denies urinary symptoms - no other signs of infection - given 1 dose rocephin in ED - continue to monitor for symptoms History of lung nodules and Ascending aortic aneurysm - CT chest w/o contrast to monitor for changes DISPO: tele obs Visit type - Medication Review Med list reviewed for High Risk Meds patients 65 and older: Yes - Emergency Visit Emergency Visit: Yes ED Registration Date: 02/25/20 Care time: The patient presented to the Emergency Department on the above date and was hospitalized for further evaluation of their emergent condition. - New Patient This patient is new to me today: Yes Date on this admission: 02/25/20 - Critical Care Critical Care patient: No ATTENDING PHYSICIAN STATEMENT I saw and evaluated the patient. I reviewed the resident's note and discussed the case with the resident. I agree with the resident's findings and plan as documented. SUBJECTIVE: OBJECTIVE: ASSESSMENT AND PLAN:
[2020-02-25] MEDS ORDERED: ASPIRIN 81 MG CHEWABLE TABLETS ONE (15:26)
[2020-02-25] MEDS ORDERED: ATORVASTATIN CA 20 MG TABLET (FP) ONE ×2 (15:26→15:30)
[2020-02-25] MEDS ORDERED: PANTOPRAZOLE 40 MG TABLET ONE ×2 (15:26→15:30)
[2020-02-25] MEDS ORDERED: ENOXAPARIN NA (PORCINE) 40 MG/0.4 ML DISP.SYRIN SQ ONE (15:26)
[2020-02-25] MEDS: ATORVASTATIN CA 20 MG TABLET (FP) PO SCH ×2 (15:35→21:49)
[2020-02-25] MEDS: ENOXAPARIN NA (PORCINE) 40 MG/0.4 ML DISP.SYRIN SQ SCH (15:38)
[2020-02-25] MEDS: PANTOPRAZOLE 40 MG TABLET PO SCH (15:38)
[2020-02-25] MEDS: ASPIRIN 81 MG CHEWABLE TABLETS PO SCH (15:38)
[2020-02-25] MEDS: SODIUM CHLORIDE 1,000 ML IV SCH (15:39)
[2020-02-25] MEDS ORDERED: MELATONIN 5 MG TABLETS PO ONE (21:22)
[2020-02-25 23:33] VITALS: BMI 29.2
[2020-02-26 06:37] LABS: HEMATOCRIT 35.5 % (32.4-45.2); HEMOGLOBIN 11.8 GM/dL (10.7-15.3); MCHC 33.2 g/dl (32.0-36.0); MEAN CELL VOLUME 90.4 fl (80-96); MEAN PLT VOLUME 8.6 fl (7.5-11.1); PLATELET COUNT 194 K/MM3 (134-434); RBC 3.93 M/mm3 (3.60-5.2); RDW 12.8 % (11.6-15.6)
[2020-02-26 07:06] LABS: ALBUMIN 2.9 g/dl (3.4-5.0); BILIRUBIN,TOTAL 0.6 mg/dL (0.2-1); BLOOD UREA NITROGEN 15.4 mg/dL (7-18); CALCIUM 8.3 mg/dL (8.5-10.1); CREATININE 0.8 mg/dL (0.55-1.3); POTASSIUM 3.6 mmol/L (3.5-5.1); TOT PROT 5.6 g/dl (6.4-8.2)
[2020-02-26] MEDS: SODIUM CHLORIDE 1,000 ML IV SCH ×3 (07:37→18:28)
[2020-02-26] MEDS ORDERED: cefTRIAXone SODIUM 1 GM VIAL ONE (08:29)
[2020-02-26] MEDS ORDERED: DEXTROSE 5%-WATER - 50 ML IVPB ONE (08:29)
[2020-02-26] MEDS: PANTOPRAZOLE 40 MG TABLET PO SCH (09:03)
[2020-02-26] MEDS: ASPIRIN 81 MG CHEWABLE TABLETS PO SCH (09:03)
[2020-02-26] MEDS: ENOXAPARIN NA (PORCINE) 40 MG/0.4 ML DISP.SYRIN SQ SCH (09:03)
[2020-02-26] MEDS ORDERED: CEFTRIAXONE 1 GM in DEXTROSE 5%-WATER - 50 ML IVPB SCH (10:00)
--- NOTE | 2020-02-26 11:09 | PN ---
Physical Exam: SUBJECTIVE: Patient seen and examined at bedside. No acute events overnight. OBJECTIVE: Vital Signs Period Temp Pulse Resp BP Sys/Last Pulse Ox Last 24 Hr 97.6 F-98.6 F 48-84 17-20 122-155/45-73 96-100 GENERAL: NAD AAO x 3 HEAD: AT/NC EYES: EOMI Sclera Clear ENT: MMM LUNGS: CTAB HEART: RRR S1S2 No MRG ABDOMEN: Soft NDNT, No suprapubic tenderness appreciated EXTREMITIES: No CCE. NEUROLOGICAL: CN 2-12 intact PSYCH: Normal mood, normal affect. SKIN: No rashes or lesions appreciated Laboratory Results - last 24 hr 02/25/20 02/25/20 02/25/20 11:39 11:39 11:39 WBC 9.8 RBC 4.28 Hgb 13.1 Hct 38.5 MCV 89.8 MCH 30.5 MCHC 33.9 RDW 12.8 Plt Count 227 MPV 8.7 Absolute Neuts (auto) 7.3 Neutrophils % 75.1 Lymphocytes % 16.8 Monocytes % 6.1 Eosinophils % 1.2 Basophils % 0.8 Nucleated RBC % 0 PTT (Actin FS) 29.7 Sodium 138 Potassium 3.9 Chloride 105 Carbon Dioxide 25 Anion Gap 7 L BUN 18.6 H Creatinine 0.9 Est GFR (CKD-EPI)AfAm 69.01 Est GFR (CKD-EPI)NonAf 59.55 Random Glucose 89 Calcium 9.3 Phosphorus Magnesium 2.1 Total Bilirubin 0.4 AST 16 ALT 17 Alkaline Phosphatase 68 Troponin I Total Protein 6.7 Albumin 3.5 Urine Color Urine Appearance Urine pH Ur Specific [place] Urine Protein Urine Glucose (UA) Urine Ketones Urine Blood Urine Nitrite Urine Bilirubin Urine Urobilinogen Ur Leukocyte Esterase Urine WBC (Auto) Urine RBC (Auto) Urine Casts (Auto) U Epithel Cells (Auto) Urine Bacteria (Auto) 02/25/20 02/25/20 02/26/20 11:39 13:00 06:05 WBC 9.0 RBC 3.93 Hgb 11.8 Hct 35.5 MCV 90.4 MCH 30.0 MCHC 33.2 RDW 12.8 Plt Count 194 MPV 8.6 Absolute Neuts (auto) Neutrophils % Lymphocytes % Monocytes % Eosinophils % Basophils % Nucleated RBC % PTT (Actin FS) Sodium Potassium Chloride Carbon Dioxide Anion Gap BUN Creatinine Est GFR (CKD-EPI)AfAm Est GFR (CKD-EPI)NonAf Random Glucose Calcium Phosphorus Magnesium Total Bilirubin AST ALT Alkaline Phosphatase Troponin I < 0.02 Total Protein Albumin Urine Color Yellow Urine Appearance Clear Urine pH 5.0 Ur Specific [place] 1.013 Urine Protein Negative Urine Glucose (UA) Negative Urine Ketones Negative Urine Blood Negative Urine Nitrite Negative Urine Bilirubin Negative Urine Urobilinogen 0.2 Ur Leukocyte Esterase 2+ H Urine WBC (Auto) 127 Urine RBC (Auto) 6 Urine Casts (Auto) 2 U Epithel Cells (Auto) 18 Urine Bacteria (Auto) 51 02/26/20 06:05 WBC RBC Hgb Hct MCV MCH MCHC RDW Plt Count MPV Absolute Neuts (auto) Neutrophils % Lymphocytes % Monocytes % Eosinophils % Basophils % Nucleated RBC % PTT (Actin FS) Sodium 140 Potassium 3.6 Chloride 109 H Carbon Dioxide 29 Anion Gap 3 L BUN 15.4 Creatinine 0.8 Est GFR (CKD-EPI)AfAm 79.57 Est GFR (CKD-EPI)NonAf 68.66 Random Glucose 90 Calcium 8.3 L Phosphorus 3.0 Magnesium 2.0 Total Bilirubin 0.6 AST 14 L ALT 14 Alkaline Phosphatase 59 Troponin I Total Protein 5.6 L Albumin 2.9 L Urine Color Urine Appearance Urine pH Ur Specific [place] Urine Protein Urine Glucose (UA) Urine Ketones Urine Blood Urine Nitrite Urine Bilirubin Urine Urobilinogen Ur Leukocyte Esterase Urine WBC (Auto) Urine RBC (Auto) Urine Casts (Auto) U Epithel Cells (Auto) Urine Bacteria (Auto) Active Medications Generic Name Dose Route Start Last Admin Trade Name Freq PRN Reason Stop Dose Admin Aspirin 81 mg 02/25/20 15:15 02/26/20 09:03 Asa - PO 81 mg DAILY DERRICK Administration Atorvastatin Calcium 20 mg 02/25/20 22:00 02/25/20 21:49 Lipitor - PO 20 mg HS DERRICK Administration Enoxaparin Sodium 40 mg 02/25/20 15:15 02/26/20 09:03 Lovenox - SQ 40 mg DAILY DERRICK Administration Sodium Chloride 1,000 mls @ 83 mls/hr 02/25/20 15:15 02/26/20 07:37 Normal Saline - IV 02/28/20 03:18 83 mls/hr ASDIR DERRICK Administration Ceftriaxone Sodium 1 gm/ 50 mls @ 100 mls/hr 02/26/20 10:00 02/26/20 09:03 Dextrose IVPB 100 mls/hr DAILY DERRICK Administration Non-Formulary Medication 1 each 02/25/20 15:15 Calcium Carb/Vitamin D3/Vit K1 [Calcium + D Soft Chewable Tab] PO DAILY DERRICK Pantoprazole Sodium 40 mg 02/25/20 15:15 02/26/20 09:03 Protonix - PO 40 mg DAILY DERRICK Administration ASSESSMENT/PLAN: Patient is 84 yo F with hx of HTN, HLD, diverticulitis, & PVCs, presented to the ED with 3 weeks of weakness, intermittent diarrhea and bradycardia. Admitted to tele observation for workup of weakness. #Weakness 2/2 volume depletion 2/2 Diarrhea - C/w IVF - Repeat BMP, repeat electrolytes as needed - EKG showed bradycardia and PVCs consistent with her previous EKG on file - monitor on tele for arrhythmias #Diarrhea - r/o cdiff, cultures ordered - stool cultures for possible bacterial causes - monitor electrolytes #Sinus Bradycardia - most likely chronic - Will resume Atenolol as sinus alexander improving - Cardiology consulted - monitor on tele #UTI - patient denies urinary symptoms - no other signs of infection - given 1 dose rocephin in ED - Will discontinue Ceftriaxone History of lung nodules and Ascending aortic aneurysm - CT chest w/o contrast: L renal nodule /cyst ,thoracic aortic aneurysm 4.1 cm , pulmonary nodules DISPO: tele obs Visit type - Emergency Visit Emergency Visit: Yes ED Registration Date: 02/25/20 Care time: The patient presented to the Emergency Department on the above date and was hospitalized for further evaluation of their emergent condition. - New Patient This patient is new to me today: No - Critical Care Critical Care patient: No - Discharge Referral Referred to [facility] Med P.C[facility] No - Medication Review Med list reviewed for High Risk Meds patients 65 and older: Yes ATTENDING PHYSICIAN STATEMENT I saw and evaluated the patient. I reviewed the resident's note and discussed the case with the resident. I agree with the resident's findings and plan as documented. SUBJECTIVE: OBJECTIVE: ASSESSMENT AND PLAN:
--- NOTE | 2020-02-26 12:11 | CON.CARD ---
Consult Consult Specialty:: Cardiology Referred by:: Bennie Green Reason for Consultation:: [email or web address] - History of Present Illness Chief Complaint: Weakness and diarrhea History of Present Illness: 84 year old female with a pmhx of htn, hld, diverticulitis, and pvc's admitted with weakness, trembling, and intermittent diarrhea. Says she thinks symptoms related to new medicine valsartan. Currently feels well after IVF's. Getting Abx for possible UTI. No chest pain, sob, or palpitations. No pnd, orthopnea, or edema. No syncope history. Known history of mild dilated asc aorta and pvcs for which she follows with Dr. Michael Cuadra at [facility]. EKG: sinus rhythm at 71bpm with pvc's, no acute ischemic changes Tele reviewed and no significant bradycardia. PVC's noted - History Source History Provided By: Patient, Medical Record - Alcohol/Substance Use Hx Alcohol Use: Yes (SOCIAL) - Smoking History Smoking history: Never smoked Have you smoked in the past 12 months: No Aproximately how many cigarettes per day: 1 Home Medications - Allergies Allergies/Adverse Reactions: Allergies Allergy/AdvReac Type Severity Reaction Status Date / Time ibuprofen [From Advil] Allergy Verified 02/25/20 11:04 naproxen [From Naprosyn] Allergy Verified 02/25/20 11:04 NSAIDS (Non-Steroidal Allergy Verified 02/25/20 11:04 Anti-Inflamma - Home Medications Home Medications: Ambulatory Orders Aspirin [ASA -] 81 mg PO DAILY 11/11/18 Atenolol [Tenormin -] 50 mg PO DAILY 11/11/18 Atorvastatin Ca [Lipitor] 20 mg PO HS 11/11/18 Triamterene/Hydrochlorothiazid [Triamterene-Hctz 37.5-25 mg Cp] 37.5 each PO DAILY 11/11/18 Alendronate Sodium [Binosto] 70 mg PO WEEKLY 12/19/18 Calcium Carb/Vitamin D3/Vit K1 [Calcium + D Soft Chewable Tab] 1 each PO DAILY 12/19/18 Celecoxib [Celebrex] 200 mg PO DAILY 02/25/20 Umeclidinium [place] [Incruse Ellipta] 1 pump IH DAILY 02/25/20 Valsartan 80 mg PO DAILY 02/25/20 Vital Signs: Vital Signs Temperature 97.7 F 02/26/20 10:00 Pulse Rate 53 L 02/26/20 10:00 Respiratory Rate 18 02/26/20 10:00 Blood Pressure 136/56 L 02/26/20 10:00 O2 Sat by Pulse Oximetry (%) 96 02/26/20 10:00 Constitutional: Yes: No Distress Neck: Yes: Supple Respiratory: Yes: CTA Bilaterally Gastrointestinal: Yes: Soft Cardiovascular: Yes: Regular Rate and Rhythm JVD: No Carotid Bruit: No PMI: Non-Displaced Heart Sounds: Yes: S1, S2 Murmur: No: Systolic Murmur Edema: No - Other Data Labs, Other Data: CBC, BMP 02/26/20 06:05 02/26/20 06:05 Troponin, BNP 02/25/20 11:39 Troponin I < 0.02 Troponin, BNP 02/25/20 11:39 Troponin I < 0.02 Problem List - Problems (1) Bradycardia Code(s): R00.1 - BRADYCARDIA, UNSPECIFIED Assessment/Plan 84 year old female with a pmhx of htn, hld, diverticulitis, and pvc's admitted with weakness, trembling, and intermittent diarrhea. Says she thinks symptoms related to new medicine valsartan. Currently feels well after IVF's. Getting Abx for possible UTI. No chest pain, sob, or palpitations. No pnd, orthopnea, or edema. No syncope history. Known history of mild dilated asc aorta and pvcs for which she follows with Dr. Michael Cuadra at [facility]. EKG: sinus rhythm at 71bpm with pvc's, no acute ischemic changes Tele reviewed and no significant bradycardia. PVC's noted\ Reports recent echo few weeks ago 1) Bradycardia No significant bradycardia on tele. HR not likely related to symptoms. Given frequent pvc's and h/o mildly dilated ascending aorta would continue beta ovidio at low dose. Atenolol 25mg daily. Recent echo few weeks ago at Dr. Cuadra's office IVFs Abx as per primary team No further cardiac work up at this time. Will sign off and please call back if needed
[2020-02-26] MEDS: PATIENT'S OWN MEDICATION (NON-FORMULARY) (Calcium Carb/Vitamin D3/Vit K1 [Calcium + D Soft PO SCH (17:05)
--- NOTE | 2020-02-26 17:13 | PN ---
Teaching Attending Note Name of Resident: Bennie Green ATTENDING PHYSICIAN STATEMENT I saw and evaluated the patient. I reviewed the resident's note and discussed the case with the resident. I agree with the resident's findings and plan as documented. SUBJECTIVE: no fever or chills. she denies dysuria or frequency. No N/v . no diarrhea today or yesterday, was given imodium by PCP . diarrhea was once daily for 3 weks . watery, non bloody , no abd pain. no fever , no sick contact OBJECTIVE: NAd, awake, alert, comfortable, dry MM CV: RRR LUngs: CTAB Abd:sfot, NT, Nd, NL BS ext : No edema or erythema on upper or lower extremities ASSESSMENT AND PLAN: pleasant 84 y/o lady with h/o HTN, HLD, diverticulitis and PVCs who presented with generalized weakness after 3 weeks of diarrhea. 1- volume depletion : causing her generalized weakness. BUN /cr improved after IVF. - cont IVF 2- Diarrhea : unclear cause. ? viral VS parasites. R/o COVID - follow covid - IVF - if recurs need stool studeis and c diff 3- Sinus alexander : due to atenolol . EKG was not found , but tele shows sinus alexander that improved resume tenormin at 25 mg daily 4- incidental findings : L renal nodukle /cyst throacic aortic aneurysm 4.1 cm pulmonary nodules follow up with imaging as out pt she has been only taking atenolollately. her pc and card dc'd her traimterine, ASA, valsartan, and statin
[2020-02-26] MEDS ORDERED: MELATONIN 5 MG TABLETS PO SCH (23:30)
[2020-02-27 07:48] LABS: BLOOD UREA NITROGEN 12.3 mg/dL (7-18); CALCIUM 8.2 mg/dL (8.5-10.1); CREATININE 0.8 mg/dL (0.55-1.3); MAGNESIUM 2.1 mg/dL (1.8-2.4); PHOSPHOROUS 2.8 mg/dL (2.5-4.9); POTASSIUM 4.4 mmol/L (3.5-5.1)
[2020-02-27 07:55] LABS: HEMATOCRIT 36.3 % (32.4-45.2); HEMOGLOBIN 12.2 GM/dL (10.7-15.3); MCH 30.3 pg (25.7-33.7); MCHC 33.6 g/dl (32.0-36.0); MEAN CELL VOLUME 90.1 fl (80-96); MEAN PLT VOLUME 9.2 fl (7.5-11.1); PLATELET COUNT 210 K/MM3 (134-434); RBC 4.03 M/mm3 (3.60-5.2); RDW 12.9 % (11.6-15.6); WHITE BLOOD COUNT 10.4 K/mm3 (4.0-10.0)
[2020-02-27] MEDS: ENOXAPARIN NA (PORCINE) 40 MG/0.4 ML DISP.SYRIN SQ SCH (09:19)
[2020-02-27] MEDS: PANTOPRAZOLE 40 MG TABLET PO SCH (09:19)
[2020-02-27] MEDS ORDERED: ATENOLOL 25 MG TABLET (FP) PO SCH (10:00)
--- NOTE | 2020-02-27 12:57 | PN ---
Progress Note (short form) - Note Progress Note: Subjective: no abd pain, no fever or chills, no diarrhea . she had a hard BM this am , no N/V . no Cp Or SOB . she does not feel weakn any more. she feels back to [place] and wants to go home Objective: Vital Signs: Last Vital Signs Temp Pulse Resp BP Pulse Ox 98.5 F 76 20 142/63 96 02/27/20 08:55 02/27/20 08:55 02/27/20 08:55 02/27/20 08:55 02/27/20 08:55 Laboratory Results - last 24 hr 02/25/20 02/25/20 02/26/20 11:39 16:14 06:05 WBC RBC Hgb Hct MCV MCH MCHC RDW Plt Count MPV Sodium 140 Potassium 3.6 Chloride 109 H Carbon Dioxide 29 Anion Gap 3 L BUN 15.4 Creatinine 0.8 Est GFR (CKD-EPI)AfAm 79.57 Est GFR (CKD-EPI)NonAf 68.66 Random Glucose 90 Calcium 8.3 L Phosphorus 3.0 Magnesium 2.0 Total Bilirubin 0.6 AST 14 L ALT 14 Alkaline Phosphatase 59 Total Protein 5.6 L Albumin 2.9 L TSH Cancelled 1.75 COVID-19 ([facility]) Not detected 02/27/20 02/27/20 05:52 05:52 WBC 10.4 H RBC 4.03 Hgb 12.2 Hct 36.3 MCV 90.1 MCH 30.3 MCHC 33.6 RDW 12.9 Plt Count 210 MPV 9.2 Sodium 142 Potassium 4.4 Chloride 111 H Carbon Dioxide 25 Anion Gap 6 L BUN 12.3 Creatinine 0.8 Est GFR (CKD-EPI)AfAm 79.57 Est GFR (CKD-EPI)NonAf 68.66 Random Glucose 93 Calcium 8.2 L Phosphorus 2.8 Magnesium 2.1 Total Bilirubin AST ALT Alkaline Phosphatase Total Protein Albumin TSH COVID-19 ([facility]IM[facility]) PE: NAD, awake, alert, comfortable, dry MM CV: RRR Lungs: CTAB Abd:soft, NT, Nd, NL BS . ext: No edema or erythema on upper or lower extremities ASSESSMENT AND PLAN: pleasant 84 y/o lady with h/o HTN, HLD, diverticulitis and PVCs who presented with generalized weakness after 3 weeks of diarrhea. 1- volume depletion :resolved 2- Diarrhea : unclear cause. ? viral VS parasites. vs IBS - covid Neg - no recurrence of diarrhea , in fact hard stool today after being contipated x 2 days stool studies were sent from this hard stool . still pending - not sure of the significance of of this mild leukocytosis. no fever . no urinary sx . no diarrhea any more. repeat in 1 week 3- Sinus alexander: due to atenolol . cont tenormin at 25 mg . she understands 4- incidental findings : L renal nodukle /cyst throacic aortic aneurysm 4.1 cm pulmonary nodules 5- pyuria . asymptomatic. urine cx before Abx were administered was neg . will not give Abx due to concern fro c diff and side effects of more diarrhea and volume depletion follow up with imaging as out pt she understands she needs to see her PCP to address her other meds that were stopped a while ago. she already has an appointment with GI to evaluate her diarrhea . cbc in 1 week by PCP d/w PT, she walked good and they Don't even recommend any walker or cane dc home Visit type - Emergency Visit Emergency Visit: Yes ED Registration Date: 02/25/20 Care time: The patient presented to the Emergency Department on the above date and was hospitalized for further evaluation of their emergent condition. - New Patient This patient is new to me today: No - Critical Care Critical Care patient: No - Medication Review Med list reviewed for High Risk Meds patients 65 and older: Yes
[2020-02-27 13:22] VITALS: BP 130/64; PULSE 60; TEMP 97.9
--- NOTE | 2020-02-27 17:37 | EKG ---
Test Reason : Blood Pressure : / mmHG Vent. Rate : 071 BPM Atrial Rate : 052 BPM P-R Int : 176 ms QRS Dur : 082 ms QT Int : 406 ms P-R-T Axes : 050 -06 010 degrees QTc Int : 441 ms POOR DATA QUALITY, INTERPRETATION MAY BE ADVERSELY AFFECTED SINUS BRADYCARDIA WITH FREQUENT PREMATURE VENTRICULAR COMPLEXES MODERATE VOLTAGE CRITERIA FOR LVH, MAY BE NORMAL VARIANT CANNOT RULE OUT SEPTAL INFARCT (CITED ON OR BEFORE 11-NOV-2018) ABNORMAL ECG WHEN COMPARED WITH ECG OF 11-NOV-2018 13:38, QUESTIONABLE CHANGE IN INITIAL FORCES OF SEPTAL LEADS T WAVE AMPLITUDE HAS DECREASED IN ANTERIOR LEADS Confirmed by MD Octavio, Bj ([id number]) on 02/27/2020 5:37:13 PM Referred By: Confirmed By:Bj Cunningham MD
--- NOTE | 2020-02-28 18:08 | DS ---
Physical Examination Vital Signs: Vital Signs Temperature 97.9 F 02/27/20 13:21 Pulse Rate 60 02/27/20 13:21 Respiratory Rate 18 02/27/20 13:21 Blood Pressure 130/64 02/27/20 13:21 O2 Sat by Pulse Oximetry (%) 95 02/27/20 13:21 Findings/Remarks: please see Physical exam in progress note from dc day Labs: CBC, BMP 02/27/20 05:52 02/27/20 05:52 Discharge Summary Problems reviewed: Yes Reason For Visit: FATIGUE BRADYCARDIA WEAKNESS Hospital Course: pleasant 84 y/o lady with h/o HTN, HLD, diverticulitis and PVCs who presented with generalized weakness after 3 weeks of diarrhea. at presentation , she was found to be volume depleted and was given IVF. her weakness much improved with IVF. 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 - please stay hydrated , and if diarrhea comes back drink lots of fluids . - keep your appointment withthe GI specialist, and have a full evaluation fro your diarrhea . some stool cultures and parasite tests are pending and will need to be followed by [facility] GI doctor or your primary doctor - please see your primary care doctor in 1 week - You need blood work ( CBC) , to evaluate your blood count as your white count was on higher side - if you have any urinary symptoms like pain, burning, or abdominal pain please call your Md and inform him/her - on the CT scan we saw incidental findings that need to be followed with regular intermittent imaging. your primary doctor can do that. those findings are ( L renal nodukle /cyst , pulmonary nodules) . - I had referred you to vascular doctor for the aortic aneurysm in your chest ( size 4.1 cm ) . need to be monitored and evaluated. - take atenolol 25 mg instead of 50 mg daily. due to your slow heart rate ( you can split the 50 mg pill you have at home ) - please take this discharge paperwork with you to your doctors. - check your blood pressure daily and report to your doctor . ( script sent to your pharmacy ) Good luck Referrals: Roby Kitchen DO [Staff Physician] - 3 Weeks Bhupendra Rodriguez MD [Primary Care Provider] - 1 Week Disposition: HOME - Home Medications Comprehensive Discharge Medication List: Ambulatory Orders Atenolol [Tenormin -] 25 mg PO DAILY #30 tab 02/27/20 Medical Supply, Miscellaneous [Blood Pressure Cuff] 1 each [facility] DAILY #1 each 02/27/20 This patient is new to me today: Yes Date on this admission: 02/28/20 Emergency Visit: No Critical Care patient: No - Discharge Referral Referred to [facility] Med P.C.: No
== END 2020-02-27 14:44 | disposition home or self-care (01) | DRG 641 ==
LOC: JER 11:02 → OBSVTOIN 13:40 → JERBED 13:40 → J4S 19:15
PROVIDERS: ADMIT Internal Medicine; ATTEND Internal Medicine
DX: E86.0 Dehydration (principal); R00.1 Bradycardia, unspecified; I10 Essential (primary) hypertension; E78.00 Pure hypercholesterolemia, unspecified; R19.7 Diarrhea, unspecified; R91.8 Other nonspecific abnormal finding of lung field; N28.1 Cyst of kidney, acquired; I71.2 Thoracic aortic aneurysm, without rupture
CPT/HCPCS: 36415; 70450-TC; 71045-TC-FY; 71250-TC; 80048; 80053; 81003; 83735; 84100; 84443; 84484; 85025; 85027; 85730; 87045; 87046; 87086; 87177; 87205; 87209; 87324; 87449; 93005; 93010; 97161-GP; 99285-25; U0003

== ENCOUNTER 2021-09-19 12:12 | Emergency (ER) | payer OTHER, MEDICARE ==
[2021-09-19 12:32] VITALS: BP 141/69; PULSE 55; TEMP 98.9; BMI 27.8
== END 2021-09-19 14:28 | disposition home or self-care (01) ==
LOC: FER 12:12
DX: S62.306A Unspecified fracture of fifth metacarpal bone, right hand, initial encounter for closed fracture (principal); W22.8XXA Striking against or struck by other objects, initial encounter
CPT/HCPCS: 73130-TC-RT-FY; 99283-25

== ENCOUNTER 2022-01-29 19:02 | Observation (INO) | payer OTHER, MEDICARE ==
[2022-01-29 19:27] VITALS: BMI 27.8
[2022-01-29] MEDS ORDERED: LACTATED RINGERS SOLUTION 1,000 ML/1,000 ML INFUS.BAG IV STA (19:42)
[2022-01-29 21:22] LABS: HEMATOCRIT 37.2 % (32.4-45.2); HEMOGLOBIN 13.3 G/dL (10.7-15.3); MCH 32.3 pg (25.7-33.7); MCHC 35.9 g/dl (32.0-36.0); MEAN PLT VOLUME 7.7 fl (7.5-11.1); RBC 4.13 10^6/uL (3.60-5.2); RDW 12.9 % (11.6-15.6); WHITE BLOOD COUNT 8.9 10^3/uL (4.0-10.8)
[2022-01-29 21:26] LABS: INR 1.09 (0.83-1.09); PROTHROMBIN TIME (PATIENT) 12.5 SEC (9.7-13.0)
[2022-01-29 21:29] LABS: ACTIVATED PTT 30.6 SECONDS (25.2-36.5)
[2022-01-29 21:33] LABS: ALBUMIN 3.9 g/dl (3.4-5.0); BILIRUBIN,TOTAL 0.7 mg/dl (0.2-1); CALCIUM 9.7 mg/dl (8.5-10); CREATININE 0.8 mg/dl (0.55-1.3); TOT PROT 6.9 g/dl (6.4-8.2)
[2022-01-29 21:33] LABS: PLATELET ESTIMATE ADEQUATE
[2022-01-30] MEDS ORDERED: POLYETHYLENE GLYCOL (HEALTHYLAX) 3350 17 GM PACKET PO PRN (00:18)
[2022-01-30] MEDS ORDERED: ACETAMINOPHEN 325 MG TABLET (FP) PO PRN (00:18)
[2022-01-30] MEDS ORDERED: MELATONIN 5 MG TABLETS PO PRN (01:24)
[2022-01-30] MEDS ORDERED: diphenhydrAMINE HCL 25 MG CAPSULE (FP) PO PRN (01:25)
[2022-01-30] MEDS ORDERED: diphenhydrAMINE HCL 25 MG CAPSULE (FP) PO ONE (01:42)
[2022-01-30 02:33] LABS: CALCIUM 8.8 mg/dL (8.5-10.1)
[2022-01-30 02:34] LABS: BLOOD UREA NITROGEN 19.3 mg/dL (7-18)
[2022-01-30 02:37] LABS: CREATININE 0.6 mg/dL (0.55-1.3)
[2022-01-30] MEDS ORDERED: ENOXAPARIN NA (PORCINE) 40 MG/0.4 ML DISP.SYRIN SQ SCH (10:00)
[2022-01-30 10:18] VITALS: TEMP 98
[2022-01-30] MEDS ORDERED: TRIAMTERENE AND HCTZ - 37.5 MG/25 MG CAPSULE PO SCH (10:45)
[2022-01-30] MEDS ORDERED: LOSARTAN POTASSIUM 25 MG TABLET PO SCH (10:45)
[2022-01-30] MEDS ORDERED: ATENOLOL 25 MG TABLET (FP) PO SCH (10:45)
[2022-01-30] MEDS ORDERED: LEVOTHYROXINE NA 112 MCG TABLET (FP) PO SCH (10:45)
[2022-01-30] MEDS ORDERED: SULFACETAMIDE SODIUM 10% OPHTHALMIC DROPS 15 ML BOTTLE OD SCH (10:45)
[2022-01-30 12:11] VITALS: BP 141/59
[2022-01-30 12:13] VITALS: PULSE 58
[2022-01-30] MEDS ORDERED: ATORVASTATIN CA 20 MG TABLET (FP) PO SCH (22:00)
== END 2022-01-30 14:27 | disposition home or self-care (01) ==
LOC: FER 19:02 → FM/S 01-30 06:10
PROVIDERS: ADMIT Hospitalist; ATTEND Nurse Practitioner Acute Care
PROC: 3E023GC Introduction of Other Therapeutic Substance into Muscle, Percutaneous Approach (ICD-10-PCS; principal; 2022-01-30)
PROC: 3E0337Z Introduction of Electrolytic and Water Balance Substance into Peripheral Vein, Percutaneous Approach (ICD-10-PCS; 2022-01-30)
DX: R42 Dizziness and giddiness (principal); R53.1 Weakness; I10 Essential (primary) hypertension; E78.00 Pure hypercholesterolemia, unspecified; I49.9 Cardiac arrhythmia, unspecified; E87.1 Hypo-osmolality and hyponatremia; Z85.850 Personal history of malignant neoplasm of thyroid; Z88.8 Allergy status to other drugs, medicaments and biological substances
CPT/HCPCS: 0241U-QW; 36415; 71045-TC-FY; 80048; 80053; 81003; 81015; 84443; 84484; 85025; 85610; 85730; 87086; 93005; 96360; 96372; 99285-25; G0378

== ENCOUNTER 2022-08-06 16:59 | Emergency (ER) | payer OTHER, MEDICARE ==
[2022-08-06 17:27] VITALS: BP 141/68; PULSE 54; RESP 16; TEMP 97.8; BMI 28.3
== END 2022-08-06 18:08 | disposition home or self-care (01) ==
LOC: FER 16:59
DX: S90.416A Abrasion, unspecified lesser toe(s), initial encounter (principal); Y99.9 Unspecified external cause status
CPT/HCPCS: 99281-25

== ENCOUNTER 2023-05-17 17:54 | Observation (INO) | payer MEDICARE, OTHER ==
[2023-05-17 18:31] LABS: HEMATOCRIT 36.4 % (32.4-45.2); HEMOGLOBIN 12.5 G/dL (10.7-15.3); MCH 32.3 pg (25.7-33.7); MCHC 34.4 g/dl (32.0-36.0); MEAN CELL VOLUME 93.9 fl (80-96); MEAN PLT VOLUME 7.9 fl (7.5-11.1); PLATELET COUNT 238.1 10^3/uL (134-434); RBC 3.88 10^6/uL (3.60-5.2); RDW 13.1 % (11.6-15.6); WHITE BLOOD COUNT 7.5 10^3/uL (4.0-10.8)
[2023-05-17 19:13] LABS: ALBUMIN 3.7 g/dl (3.4-5.0); BILIRUBIN,TOTAL 0.5 mg/dl (0.2-1); BLOOD UREA NITROGEN 19.5 mg/dl (7-18); CREATININE 0.8 mg/dl (0.6-1.3); POTASSIUM 4.3 mmol/L (3.5-5.1); SGOT/AST 19.4 U/L (15-37); SGPT/ALT 4.2 U/L (7-52); TOT PROT 6.1 g/dl (6.4-8.2)
[2023-05-17 19:22] LABS: EPITHELIAL CELLS FEW /hpf
[2023-05-17] MEDS ORDERED: SODIUM CHLORIDE 0.9% 500 ML INFUS.BAG IV ONE (20:29)
[2023-05-17] MEDS ORDERED: DOCUSATE SODIUM 100 MG CAPSULE (FP) PO PRN (21:23)
[2023-05-17] MEDS ORDERED: ACETAMINOPHEN 325 MG TABLET (FP) PO PRN (21:23)
[2023-05-17 22:20] VITALS: BMI 26.6
[2023-05-17] MEDS: MELATONIN 1 MG TABLET PO PRN (22:30)
[2023-05-17] MEDS: CARBIDOPA/LEVODOPA 25/100 TABLET (FP) PO SCH (22:30)
[2023-05-18] MEDS: CARBIDOPA/LEVODOPA 25/100 TABLET (FP) PO SCH ×3 (06:20→21:07)
[2023-05-18] MEDS ORDERED: LEVOTHYROXINE NA 125 MCG TABLET (FP) PO SCH (07:00)
[2023-05-18 08:58] LABS: HEMATOCRIT 34.7 % (32.4-45.2); HEMOGLOBIN 11.8 G/dL (10.7-15.3); MCH 31.7 pg (25.7-33.7); MCHC 34.1 g/dl (32.0-36.0); MEAN CELL VOLUME 92.9 fl (80-96); MEAN PLT VOLUME 7.7 fl (7.5-11.1); RBC 3.73 10^6/uL (3.60-5.2); RDW 13.3 % (11.6-15.6); WHITE BLOOD COUNT 6.8 10^3/uL (4.0-10.8)
[2023-05-18] MEDS: ATENOLOL 25 MG TABLET (FP) PO SCH (09:16)
[2023-05-18] MEDS: LOSARTAN POTASSIUM 25 MG TABLET PO SCH (09:16)
[2023-05-18 10:24] LABS: BLOOD UREA NITROGEN 17.2 mg/dl (7-18); CALCIUM 8.9 mg/dl (8.5-10.1); CREATININE 0.8 mg/dl (0.6-1.3); MAGNESIUM 1.7 mg/dL (1.8-2.4); PHOSPHOROUS 3.85 (2.5-4.9); POTASSIUM 4.1 mmol/L (3.5-5.1)
[2023-05-18] MEDS ORDERED: SODIUM CHLORIDE 0.9% 500 ML INFUS.BAG IV ONE (12:08)
[2023-05-18 12:30] LABS: INR 1.1 (0.83-1.09); PROTHROMBIN TIME (PATIENT) 12.7 SEC (9.7-13.0)
[2023-05-18] MEDS: SODIUM CHLORIDE 1 GM TABLET PO SCH ×2 (17:46→21:07)
[2023-05-18 21:11] VITALS: RESP 16
[2023-05-18] MEDS: MELATONIN 1 MG TABLET PO PRN (21:59)
[2023-05-18] MEDS ORDERED: ATORVASTATIN CA 20 MG TABLET (FP) PO SCH (22:00)
[2023-05-19] MEDS: CARBIDOPA/LEVODOPA 25/100 TABLET (FP) PO SCH (06:17)
[2023-05-19] MEDS ORDERED: LEVOTHYROXINE NA 112 MCG TABLET (FP) PO SCH (07:00)
[2023-05-19 09:46] LABS: POTASSIUM 3.6 mmol/L (3.5-5.1)
[2023-05-19] MEDS: LOSARTAN POTASSIUM 25 MG TABLET PO SCH (09:46)
[2023-05-19] MEDS: ATENOLOL 25 MG TABLET (FP) PO SCH (09:46)
[2023-05-19 09:51] LABS: CALCIUM 8.6 mg/dL (8.5-10.1)
[2023-05-19 09:52] LABS: ALBUMIN 3.4 g/dl (3.4-5.0); BLOOD UREA NITROGEN 14.5 mg/dL (7-18)
[2023-05-19 09:55] LABS: CREATININE 0.8 mg/dL (0.55-1.3)
[2023-05-19 09:56] LABS: BILIRUBIN,TOTAL 0.7 mg/dL (0.2-1); TOT PROT 6.9 g/dl (6.4-8.2)
[2023-05-19 10:15] VITALS: BP 125/56; PULSE 56; TEMP 97.6
== END 2023-05-19 13:04 | disposition home or self-care (01) ==
LOC: FER 17:54 → FM/S 21:06
PROVIDERS: ADMIT Internal Medicine
PROC: 3E0337Z Introduction of Electrolytic and Water Balance Substance into Peripheral Vein, Percutaneous Approach (ICD-10-PCS; principal; 2023-05-17)
DX: E87.1 Hypo-osmolality and hyponatremia (principal); E05.90 Thyrotoxicosis, unspecified without thyrotoxic crisis or storm; G20.A1 Parkinson's disease without dyskinesia, without mention of fluctuations; F06.70 Mild neurocognitive disorder due to known physiological condition without behavioral disturbance; I10 Essential (primary) hypertension; E78.5 Hyperlipidemia, unspecified; F41.9 Anxiety disorder, unspecified; Z85.850 Personal history of malignant neoplasm of thyroid; M62.81 Muscle weakness (generalized); M54.9 Dorsalgia, unspecified; R00.1 Bradycardia, unspecified; R53.83 Other fatigue; Z88.8 Allergy status to other drugs, medicaments and biological substances
CPT/HCPCS: 0241U-QW; 36415; 71045-TC-FY; 80048; 80053; 81003; 81015; 82436; 82533; 83735; 83930; 83935; 84100; 84133; 84300; 84439; 84443; 84484; 85025; 85027; 85610; 85730; 86850; 86900; 86901; 87086; 93005; 97116-GP; 99285-25; G0378

== ENCOUNTER 2025-02-02 14:24 | Inpatient (IN) | payer OTHER ==
[2025-02-02 15:32] LABS: ABSOLUTE IMMATURE GRANULOCYTES 0.03 x10^3/uL (0.0-0.031); BASOPHILS # 0.04 x10^3/uL (0.01-0.08); EOSINOPHIL % 0.9 % (0.7-5.8); EOSINOPHILS # 0.11 x10^3/uL (0.04-0.36); MCHC 33.4 g/dl (32.2-35.5); MEAN CELL VOLUME 92.5 fl (79.4-94.8); MEAN PLT VOLUME 9.5 fl (9.4-12.3); MONOCYTE # 0.65 x10^3/uL (0.24-0.86); MONOCYTE % 5.0 % (4.7-12.5); RDW 12.4 % (12.5-17.0)
[2025-02-02 16:11] LABS: ALK PHOS 62.0 U/L (45-117); CO2 24.0 mmol/L (21-32); CREATININE 0.9 mg/dl (0.6-1.3); GLUCOSE,RANDOM 122.0 mg/dl (74-106); SGOT/AST 15.0 U/L (15-37); SGPT/ALT 5.0 U/L (7-52); TOT PROT 6.4 g/dl (6.4-8.2)
[2025-02-02] MEDS ORDERED: MAGNESIUM SULFATE IN WATER 2 GM/50 ML IVPB IVPB ONE (17:44)
[2025-02-02] MEDS: MAGNESIUM SULF 50% (8.12 MEQ/2 ML-1 GM VIAL) IVPB ONE (17:48)
[2025-02-02 22:30] VITALS: BMI 27.3
[2025-02-03] MEDS: MELATONIN 5 MG TABLETS PO PRN (00:20)
[2025-02-03 03:14] VITALS: RESP 18
[2025-02-03 07:47] LABS: ABSOLUTE IMMATURE GRANULOCYTES 0.02 x10^3/uL (0.0-0.031); BASOPHILS # 0.03 x10^3/uL (0.01-0.08); EOSINOPHIL % 1.6 % (0.7-5.8); EOSINOPHILS # 0.15 x10^3/uL (0.04-0.36); MCHC 33.9 g/dl (32.2-35.5); MEAN CELL VOLUME 91.7 fl (79.4-94.8); MEAN PLT VOLUME 9.2 fl (9.4-12.3); MONOCYTE # 0.62 x10^3/uL (0.24-0.86); MONOCYTE % 6.5 % (4.7-12.5); RDW 12.4 % (12.5-17.0)
[2025-02-03 08:11] LABS: CO2 26.0 mmol/L (21-32); CREATININE 0.8 mg/dl (0.6-1.3); GLUCOSE,RANDOM 96.0 mg/dl (74-106)
[2025-02-03] MEDS: LEVOTHYROXINE NA 112 MCG TABLET (FP) PO SCH (08:33)
[2025-02-03] MEDS: ATENOLOL 25 MG TABLET (FP) PO SCH (09:22)
[2025-02-03] MEDS: LOSARTAN POTASSIUM 50 MG TABLET PO SCH (09:22)
[2025-02-03] MEDS ORDERED: ATENOLOL 25 MG TABLET (FP) PO SCH (10:00)
[2025-02-03] MEDS: APIXABAN 5 MG TABLET PO SCH (10:53)
[2025-02-03] MEDS: CARBIDOPA/LEVODOPA 25/100 TABLET (FP) PO SCH (12:01)
[2025-02-03 14:29] VITALS: BP 144/82; PULSE 98; TEMP 97.5
[2025-02-03] MEDS ORDERED: ATORVASTATIN CA 20 MG TABLET (FP) PO SCH (22:00)
[2025-02-03] MEDS ORDERED: traZODone HCL 50 MG TABLET (FP) PO SCH (22:00)
== END 2025-02-03 15:52 | disposition home or self-care (01) | DRG 310 ==
LOC: FER 14:24 → FM/S 19:55
PROVIDERS: ADMIT Student in an Organized Health Care Education/Training Program
DX: I48.91 Unspecified atrial fibrillation (principal); K52.9 Noninfective gastroenteritis and colitis, unspecified; I10 Essential (primary) hypertension; E03.9 Hypothyroidism, unspecified; G20.A1 Parkinson's disease without dyskinesia, without mention of fluctuations; M35.3 Polymyalgia rheumatica; E78.5 Hyperlipidemia, unspecified
CPT/HCPCS: 36415; 71045-TC-FY; 74177-TC; 80048; 80053; 81003; 81015; 83735; 84484; 85025; 87086; 93005; 99285-25; Q9967